=== PATIENT | female | born 1985 | race Caucasian/White ===

== ENCOUNTER 2021-02-16 13:41 | Emergency (ER) | payer BC ==
[~2021-02-16] VITALS: Ht 162.6 cm; Wt 112.5 kg
[~2021-02-16 13:41] MED LIST: ALPRAZOLAM1 MG PO; AUGMENTIN 875-1 EACH PO; CELEXA20 MG PO; LAMICTAL150 MG PO; OMNICEF 300 MG300 MG PO; PEPCID40 MG PO; SEROQUEL50 MG PO; VIBRAMYCIN100 MG PO; VITAMIN C500 MG PO; VRAYLAR3 MG PO; ZOFRAN4 MG PO
[2021-02-16 14:36] LABS: HEMOGLOBIN 8.7 gm/dl (12.3-15.3); RED BLOOD COUNT 3.71 M/UL (4.00-5.10)
[2021-02-16] MEDS ORDERED: MEGA BIOTIN10000 MCG PO (17:14)
[2021-02-16] MEDS ORDERED: DAILY-VITE1 EACH PO (17:14)
[2021-02-16] MEDS ORDERED: TRAZODONE HCL100 MG PO (23:57)
== END 2021-02-16 20:29 | disposition home or self-care (01) ==
LOC: ER1 13:41 → CDU 15:39 → ER1 20:29
PROVIDERS: Emergency Medicine
DX: N10 Acute pyelonephritis (principal); Z20.822 Contact with and (suspected) exposure to COVID-19
CPT/HCPCS: 80053; 81001; 83540; 83550; 83605; 84703; 85025; 87040; 87086; 96365; 96366; 96375; 96376; 99284; J2185; J3370; J7030; U0002

== ENCOUNTER → 2021-09-27 | Outpatient (CLI) | payer BC ==
[~2021-09-27] MED LIST changes: +DAILY-VITE1 EACH PO; +MEGA BIOTIN10000 MCG PO; +TRAZODONE HCL100 MG PO
== END ==
LOC: RAD 16:37
DX: M54.2 Cervicalgia (principal); M47.812 Spondylosis without myelopathy or radiculopathy, cervical region
CPT/HCPCS: 72040

== ENCOUNTER → 2021-11-03 | Outpatient (CLI) | payer BC | LOC: HEART 5 08:33 | DX: R06.02 Shortness of breath (principal); I11.9 Hypertensive heart disease without heart failure; R60.9 Edema, unspecified | CPT/HCPCS: 93306 ==

== ENCOUNTER → 2022-01-03 | Outpatient (CLI) | payer BC | LOC: KOH-I 10:40 | DX: M50.122 Cervical disc disorder at C5-C6 level with radiculopathy (principal) | CPT/HCPCS: 72141 ==